=== PATIENT | male | born 1995 | race Caucasian/White ===

== ENCOUNTER 2018-07-21 22:37 | Emergency (ER) | payer OTHER | END 2018-07-22 02:31 | disposition home or self-care (01) | LOC: FTE 22:37 | DX: H93.93 Unspecified disorder of ear, bilateral (principal) | CPT/HCPCS: 99283; Z7502 ==

== ENCOUNTER 2019-03-12 17:12 | Emergency (ER) | payer OTHER | END 2019-03-13 19:57 | disposition home or self-care (01) | LOC: E/R 03-13 19:57 | DX: M25.532 Pain in left wrist (principal); Z87.81 Personal history of (healed) traumatic fracture | CPT/HCPCS: 73110; 73110-LT; 99283-25 ==